=== PATIENT | male | born 1985 | race Hispanic/Latino ===

== ENCOUNTER 2020-09-20 12:09 | Emergency (ER) | payer SELFPAY ==
[2020-09-20] MEDS ORDERED: DIAZEPAM 5 MG TABLET ONE (12:39)
[2020-09-20] MEDS ORDERED: KETOROLAC TROMETHAMINE 60 MG/2 ML VIAL ONE (12:39)
[2020-09-20] MEDS ORDERED: HYDROCODONE/ACETAMINOPHEN 10/325 MG TAB ONE (12:40)
[2020-09-20] MEDS ORDERED: DEXAMETHASONE SOD PHOSPHATE 10MG/ML 1ML VIAL ONE (13:44)
[2020-09-20 13:47] LABS: APPEARANCE,URINE Clear (CLEAR); BILIRUBIN,URINE Small (NEGATIVE); COLOR,URINE Dark Yellow (YELLOW); GLUCOSE, URINE (UA) Negative (NEGATIVE); KETONES,URINE Trace mg/dL (NEGATIVE); LEUKOCYTE ESTERASE ,URINE Small (NEGATIVE); NITRATE,URINE Negative (NEGATIVE); OCCULT BLOOD,URINE Negative (NEGATIVE); PROTEIN,URINE POS 1+ mg/dL (NEGATIVE)
[2020-09-20 14:03] LABS: RBC,URINE None Seen /HPF (0-1); WBC,URINE 0-1 /HPF (0-1)
[2020-09-20 14:04] LABS: BACTERIA,URINE Rare /HPF (None Seen); MUCUS,URINE Moderate LPF (None Seen)
== END 2020-09-20 15:03 | disposition home or self-care (01) ==
LOC: EDH 12:09
DX: M54.42 Lumbago with sciatica, left side (principal); F12.90 Cannabis use, unspecified, uncomplicated; Z72.0 Tobacco use
CPT/HCPCS: 72100; 81001; 96372 ×2; 99284; J1100; J1885

== ENCOUNTER 2024-02-20 10:01 | Emergency (ER) | payer SELFPAY ==
[~2024-02-20] VITALS: Ht 180.3 cm; Wt 111.1 kg
[2024-02-20] MEDS: KETOROLAC 60 MG VIAL (30MG/ML) IM ONE (12:10)
[2024-02-20] MEDS: DEXAMETHASONE SOD PHOSPHATE 4 MG/ML 1ML VIAL IM ONE (12:11)
[2024-02-20] MEDS: CYCLOBENZAPRINE HCL 10 MG TABLET PO ONE (12:11)
[2024-02-20] MEDS ORDERED: METH4TAB3 PO (13:22)
[2024-02-20] MEDS ORDERED: IBUP-2077 PO (13:22)
[2024-02-20] MEDS ORDERED: CYCL10TA16 PO (13:22)
[2024-02-20 14:08] VITALS: BP 128/74; PULSE 74; RESP 16; O2SAT 98
== END 2024-02-20 14:24 | disposition home or self-care (01) ==
LOC: EDH 10:01
DX: S29.012A Strain of muscle and tendon of back wall of thorax, initial encounter (principal); E78.00 Pure hypercholesterolemia, unspecified; I10 Essential (primary) hypertension; Z90.89 Acquired absence of other organs; X58.XXXA Exposure to other specified factors, initial encounter; Y93.89 Activity, other specified; Y92.89 Other specified places as the place of occurrence of the external cause; Y99.8 Other external cause status
CPT/HCPCS: 99284; 72070; 96372 ×2; J1100; J1885